=== PATIENT | male | born 1935 | race Caucasian/White ===

== ENCOUNTER 2021-10-12 14:02 | Observation (INO) | payer MEDICARE, SELFPAY ==
--- NOTE | 2021-10-12 | USCV_ITS ---
Transthoracic Echo Anaya Calvo Age: 86 Gender: M : 1935 Exam Date: 10/12/2021 21:44 Ordering Phys: Linda Florence MD Technologist: PATIENCE [place] [facility] [place]: PE BP: 150 / 103 HR: 82 Rhythm: Sinus Technical Quality: Adequate MEASUREMENTS (Male / Female) Normal Values 2D ECHO LV Diastolic Diameter PLAX 3.5 cm 4.2 - 5.9 / 3.9 - 5.3 cm LV Systolic Diameter PLAX 1.9 cm IVS Diastolic Thickness 1.5 cm 0.6 - 1.0 / 0.6 - 0.9 cm IVS Systolic Thickness 1.8 cm LVPW Diastolic Thickness 1.6 cm 0.6 - 1.0 / 0.6 - 0.9 cm LVPW Systolic Thickness 2.0 cm LVOT Diameter 2.3 cm LV Ejection Fraction 2D Teich 82.6 % LV Ejection Fraction MOD 2C 64.2 % LV Ejection Fraction 2C AL 64.8 % LA Diameter 5.2 cm LA Width 3.8 cm LA Height 5.7 cm RA Width 3.2 cm RA Height 4.9 cm Aorta at Sinotubular Diameter 2.8 cm M-MODE Aortic Annulus Diameter 3.5 cm LA Ao Ratio MM 1.7 MV E Point Septal Separation 2.4 cm DOPPLER AV Peak Velocity 94.0 cm/s LVOT Peak Velocity 72.0 cm/s AV Area Cont Eq vti 3.1 cm squared AV Area Cont Eq pk 3.0 cm squared MV Peak Velocity 107.0 cm/s MV Area PHT 3.4 cm squared Mitral E to A Ratio 0.6 MV E' Velocity 34.5 cm/s Mitral E to MV E' Ratio 7.9 Mitral E to LV E' Lateral Ratio 5.6 Mitral E to LV E' Septal Ratio 13.3 TR Peak Velocity 141.4 cm/s TR Peak Gradient 8.0 mmHg TR Mean Velocity 63.7 cm/s TR Mean Gradient 1.8 mmHg TR Velocity Time Integral 17.8 cm Right Atrial Pressure 3.0 mmHg Pulmonary Artery Systolic Pressu 11.0 mmHg PV Peak Velocity 67.0 cm/s RV Acceleration Time 0.1 s RV Ejection Time 0.3 s RV AcT/ET 0.4 FINDINGS Left Ventricle Normal left ventricular size. LV systolic function is normal with EF of 55-60%. No regional wall motion abnormalities. Grade 1 diastolic dysfunction Right Ventricle Grossly normal in size and function Right Atrium The right atrium is normal in size. Left Atrium Left atrium is normal in size Mitral Valve Moderate mitral annular calcification without significant stenosis or prolapse. There is mild mitral regurgitation. Aortic Valve Structurally normal aortic valve without significant sclerosis or stenosis. There is no aortic regurgitation. Tricuspid Valve Structurally normal tricuspid valve without significant stenosis or regurgitation. Insufficient TR jet to calculate RVSP Pulmonic Valve Not well visualized Pericardium Normal pericardium without effusion. Aorta Normal ascending aorta dimension. CONCLUSIONS LV systolic function is normal with EF of 55-60% Grade 1 diastolic dysfunction RV is grossly normal in size and function Moderate mitral annular calcification. Mild mitral regurgitation No comparison studies are available. Ángel Rivas MD (Electronically Signed) Final Date: 13 October 2021 14:50 S
[2021-10-12 14:13] VITALS: BP 189/93; PULSE 94; RESP 18; O2SAT 97; BMI 26.6
--- NOTE | 2021-10-12 14:14 | ECG_ITS ---
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 Measurements Intervals [place] Rate: 95 P: 30 [place]: 211 QRS: -67 QRSD: 145 T: 62 QT: 383 QTc: 482 Interpretive Statements SINUS RHYTHM WITH FIRST DEGREE AV BLOCK LEFT AXIS DEVIATION [QRS AXIS < -30] INTRAVENTRICULAR CONDUCTION DELAY [130+ ms QRS DURATION] Compared to ECG 10/12/2021 16:00:41 First degree AV block now present Electronically Signed On 10-13-2021 5:36:05 INSTRUMENT REPAIR SPECIALIST by Saira Palomares M.D. [id number]
--- NOTE | 2021-10-12 14:14 | XRR_ITS ---
PROCEDURE INFORMATION: Exam: XR Chest Exam date and time: 10/12/2021 2:14 PM Age: 86 years old Clinical indication: Pain; Angina pectoris; Prior surgery; Additional info: Cp TECHNIQUE: Imaging protocol: XR of the chest. Views: 1 view. COMPARISON: No relevant prior studies available. FINDINGS: Lungs: Mild left lower lobe interstitial congestion the left upper lobe and right lung are clear. Low lung volumes are seen. No consolidation. Pleural spaces: Unremarkable. No pleural effusion. No pneumothorax. Heart/Mediastinum: Unremarkable. No cardiomegaly. Bones/joints: Metallic sternotomy wires are in place. XR/XR chest 1V portable [id number] IMPRESSION: 1. Mild left lower lobe interstitial congestion 2. Otherwise No acute findings. 3. Status post sternotomy
--- NOTE | 2021-10-12 14:15 | W.ED.CHESTPA ---
HPI - Chest Pain General: Chief Complaint: General Medical Stated Complaint: CHEST PAIN Time Seen by Provider: 10/12/21 14:06 History of Present Illness: 86-year-old male presents due to chest pain. He was scheduled for an eye procedure and in the waiting area he states that he had several seconds of sharp mild chest pain that did not radiate. Denies any shortness of breath. States pain is now gone. Denies any lower extremity pain or swelling. Denies fever cough or chills. Denies nausea or vomiting. Denies previous similar episodes. Review of Systems Narrative: - CONSTITUTIONAL: Denies weight loss, fever and chills. - HEENT: Denies changes in vision and hearing. - RESPIRATORY: Denies SOB and cough. - CV: As above - GI: Denies abdominal pain, nausea, vomiting and diarrhea. - : Denies dysuria and urinary frequency. - MSK: Denies myalgia and joint pain. - SKIN: Denies rash and pruritus. - NEUROLOGICAL: Denies headache, weakness, numbness and syncope. - PSYCHIATRIC: Denies suicidal ideation Physical Exam Narrative: EXAM NARRATIVE: - GENERAL: Alert and oriented x 3. No acute distress. Well-nourished. - EYES: EOMI. Anicteric. - HENT: Atraumatic, no C-spine tenderness. Moist mucous membranes. No scleral icterus. No cervical lymphadenopathy. - LUNGS: Clear to auscultation bilaterally. No accessory muscle use. Equal lung sounds bilaterally. No respiratory distress. - CARDIOVASCULAR: Regular rate and rhythm. No murmur. No JVD. - ABDOMEN: Soft, non-tender and non-distended. Negative CVA tenderness bilaterally, no rebound or guarding, negative Manley sign. No palpable masses. - EXTREMITIES: No edema. Non-tender. - SKIN: No rashes or lesions. Warm. - NEUROLOGIC: No meningismus or focal neurological deficits. CN II-XII grossly intact. - PSYCHIATRIC: Cooperative. Appropriate mood and affect. Course Vital Signs: Vital signs: Vital Signs Pulse Rate 95 10/12/21 15:59 Respiratory Rate 18 10/12/21 15:59 Blood Pressure 189/93 10/12/21 14:17 Pulse Oximetry 95 10/12/21 15:59 MDM - Chest Pain Medical Decision Making 86-year-old gentleman presents with chest pain prior to eye surgery. Physical exam markable. D-dimer however is elevated and CT is concerning for PE. Started on heparin drip. Remainder of lab work unremarkable. He is hemodynamically stable afebrile nontoxic-appearing. Saturating well on room air. No signs of heart strain. Remainder of lab work and imaging reviewed. Discussed with hospitalist and they agreed patient would benefit from admission. Patient admitted in stable condition. Further evaluation management per hospitalist team. Lab Data : 10/12/21 15:38 10/12/21 15:38 Radiology Impressions Chest X-Ray 10/12/21 14:14 IMPRESSION: 1. Mild left lower lobe interstitial congestion 2. Otherwise No acute findings. 3. Status post sternotomy Chest CTA 10/12/21 16:27 IMPRESSION: 1. Positive for pulmonary embolism. 2. Negative for right heart strain. 3. Status post sternotomy. 4. Dorsal spine osteoarthritis ADDENDUM: 10/12/211801 Findings were discussed with Adelfo Traore at 10/12/2021 6:00 PM [employer]ISS[employer] FOR THE BLIND DIRECTOR. Laboratory Results WBC 5.8 10^3/uL (4.0-10.0) 10/12/21 15:38 RBC 4.73 10^6/uL (4.1-5.3) 10/12/21 15:38 Hgb 14.9 g/dL (11.7-16.6) 10/12/21 15:38 Hct 45.0 % (42.0-52.0) 10/12/21 15:38 MCV 95.1 fl (80-94) H 10/12/21 15:38 MCH 31.5 pg (28.0-34.0) 10/12/21 15:38 MCHC 33.1 g/dL (30.0-36.0) 10/12/21 15:38 RDW 13.2 % (12.1-15.1) 10/12/21 15:38 Plt Count 162 10^3/cmm (130-400) 10/12/21 15:38 MPV 10.6 fL (7.4-10.4) H 10/12/21 15:38 Neut % (Auto) 87.2 % 10/12/21 15:38 Lymph % (Auto) 10.8 % 10/12/21 15:38 [place] % (Auto) 1.0 % 10/12/21 15:38 Eos % (Auto) 0.2 % 10/12/21 15:38 Baso % (Auto) 0.5 % 10/12/21 15:38 Neut # (Auto) 5.01 10^3/uL (1.8-7.7) 10/12/21 15:38 Lymph # (Auto) 0.6 10^3/uL (0.8-4.8) L 10/12/21 15:38 [place] # (Auto) 0.1 10^3/uL (0.2-0.9) L 10/12/21 15:38 Eos # (Auto) 0.0 10^3/uL (0.0-0.8) 10/12/21 15:38 Baso # (Auto) 0.0 10^3/uL (0.0-0.1) 10/12/21 15:38 Nucleated RBC % (auto) 0 % 10/12/21 15:38 Nucleated RBCs # 0.0 /100WBC 10/12/21 15:38 D-Dimer 0.72 ug/mIFEU (0-0.59) H 10/12/21 15:38 Sodium 142 mmol/L (136-145) 10/12/21 15:38 Potassium 4.1 mmol/L (3.5-5.1) 10/12/21 15:38 Chloride 104 mmol/L (98-107) 10/12/21 15:38 Carbon Dioxide 25 mmol/L (22-29) 10/12/21 15:38 Anion Gap 17.1 (5-19) 10/12/21 15:38 BUN 18 mg/dL (8-23) 10/12/21 15:38 Creatinine 0.7 mg/dL (0.7-1.2) 10/12/21 15:38 GFR Calculation Not Reportable 10/12/21 15:38 Glucose 188 mg/dL (65-115) H 10/12/21 15:38 Calculated Osmolality 301 mOsm/kg (285-295) H 10/12/21 15:38 Calcium 9.2 mg/dL (8.5-10.5) 10/12/21 15:38 Total Bilirubin 0.5 mg/dL (0.15-1.2) 10/12/21 15:38 AST 24 U/L (0-40) 10/12/21 15:38 ALT < 5 U/L (0-41) 10/12/21 15:38 Alkaline Phosphatase 79 IU/L (40-130) 10/12/21 15:38 Troponin T Baseline 63 ng/L (0-15) H 10/12/21 15:38 Troponin T 120 Minute 59.57 ng/L (0-15) H 10/12/21 17:36 Delta Troponin T -3.43 ABS# (0-10) L 10/12/21 17:36 NT-Pro-B Natriuret Pep 792 pg/mL (0-450) H 10/12/21 15:38 Total Protein 7.0 g/dL (6.6-8.7) 10/12/21 15:38 Albumin 4.9 g/dL (3.5-5.2) 10/12/21 15:38 Globulin 2.1 g/dL (1.3-4.6) 10/12/21 15:38 SARS-CoV-2 Ag (Rapid) Negative (Negative) 10/12/21 14:40 EKG Data EKG 1: Other EKG comments: Sinus rhythm with PVC, rate of 99, left bundle branch block is present, no sign of acute ischemia or other acute abnormality. Discharge Plan Discharge Condition: Stable Coding Level of Care Code ED Rn Cvor for Randall Wen
[2021-10-12 14:17] VITALS: BP 189/93; PULSE 90; RESP 18; O2SAT 97
[2021-10-12 15:23] LABS: SARS Covid-2 Antigen Negative (Negative)
[2021-10-12 15:59] VITALS: PULSE 95; RESP 18; O2SAT 95
--- NOTE | 2021-10-12 16:03 | PC.NURSE ---
EKG done at 1600
[2021-10-12 16:08] LABS: D Dimer 0.72 ug/mIFEU (0-0.59)
[2021-10-12 16:10] LABS: Troponin(5th) Baseline 63 ng/L (0-15)
--- NOTE | 2021-10-12 16:14 | ECG_ITS ---
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 Measurements Intervals [place] Rate: 94 P: 14 [place]: 194 QRS: -63 QRSD: 141 T: 59 QT: 391 QTc: 490 Interpretive Statements SINUS RHYTHM LEFT AXIS DEVIATION [QRS AXIS < -30] INTRAVENTRICULAR CONDUCTION DELAY [130+ ms QRS DURATION] No previous ECG available for comparison Electronically Signed On 10-13-2021 5:48:50 MILLER SUPERVISOR by Saira Palomares M.D. [email or web address] centerMassachusetts [facility].[employer]/store/OM/[id number]
[2021-10-12 16:17] LABS: Alanine Aminotransferase < 5 U/L (0-41); Albumin Level 4.9 g/dL (3.5-5.2); Alkaline Phosphatase 79 IU/L (40-130); Anion Gap 17.1 (5-19); Aspartate Amino Transferase 24 U/L (0-40); Blood Urea Nitrogen 18 mg/dL (8-23); Calcium 9.2 mg/dL (8.5-10.5); Carbon Dioxide 25 mmol/L (22-29); Chloride 104 mmol/L (98-107); Globulin 2.1 g/dL (1.3-4.6); Glucose 188 mg/dL (65-115); NT Pro B Type Natriuretic Pept 792 pg/mL (0-450); Osmolality Calculated 301 mOsm/kg (285-295); Potassium 4.1 mmol/L (3.5-5.1); Sodium 142 mmol/L (136-145); Total Bilirubin 0.5 mg/dL (0.15-1.2)
--- NOTE | 2021-10-12 16:27 | CTR_ITS ---
PROCEDURE INFORMATION: Exam: CTA Chest With Contrast Exam date and time: 10/12/2021 4:27 PM Age: 86 years old Clinical indication: Shortness of breath; Patient HX: Hbp w/ SOB; Additional info: Pe TECHNIQUE: Imaging protocol: Computed tomographic angiography of the chest with contrast. 3D rendering (Not supervised by radiologist): MIP and/or 3D reconstructed images were created by the technologist. Radiation optimization: All CT scans at this facility use at least one of these dose optimization techniques: automated exposure control; mA and/or kV adjustment per patient size (includes targeted exams where dose is matched to clinical indication); or iterative reconstruction. Contrast material: OMNI 350; Contrast volume: 95 ml; Contrast route: INTRAVENOUS (IV); COMPARISON: CR XR chest 1V portable [id number] 10/12/2021 2:28 PM RADIATION DOSE METRICS: Total DLP (mGy-cm): 520.35 FINDINGS: Pulmonary arteries: There are several small filling defects seen within the pulmonary arteries of both lungs corresponding to positive diagnosis for pulmonary embolism. Aorta: Unremarkable. No aortic aneurysm. No aortic dissection. Lungs: Unremarkable. No consolidation. No masses. Pleural spaces: Unremarkable. No pneumothorax. No pleural effusion. Heart: Negative for right heart strain.. No cardiomegaly. No pericardial effusion. Lymph nodes: Unremarkable. No enlarged lymph nodes. Bones/joints: Metallic sternotomy wires are in place. No acute fracture. Dorsal spine osteoarthritis. Soft tissues: Unremarkable. CT/CT angio chest PE protcl [id number] IMPRESSION: 1. Positive for pulmonary embolism. 2. Negative for right heart strain. 3. Status post sternotomy. 4. Dorsal spine osteoarthritis
[2021-10-12 16:47] LABS: Basophils % 0.5 %; Eosinophils % 0.2 %; Hemoglobin 14.9 g/dL (11.7-16.6); Lymphocytes # 0.6 10^3/uL (0.8-4.8); Lymphocytes % 10.8 %; Mean Corpuscular HGB Conc 33.1 g/dL (30.0-36.0); Mean Corpuscular Hemoglobin 31.5 pg (28.0-34.0); Mean Corpuscular Volume 95.1 fl (80-94); Mean Platelet Volume 10.6 fL (7.4-10.4); Monocytes # 0.1 10^3/uL (0.2-0.9); Neutrophils # 5.01 10^3/uL (1.8-7.7); Neutrophils % 87.2 %; Nucleated Red Blood Cells % 0 %; Platelet Count 162 10^3/cmm (130-400); Red Blood Count 4.73 10^6/uL (4.1-5.3); Red Cell Distribution Width 13.2 % (12.1-15.1); White Blood Count 5.8 10^3/uL (4.0-10.0)
[2021-10-12 16:56] LABS: Slide Review Slide Review Perform
[2021-10-12] MEDS: iohexol 350 mg/mL 100 mL Btl IV (17:15)
[2021-10-12] MEDS: metoprolol tartrate 50 mg Tablet PO (17:29)
[2021-10-12 18:09] LABS: Troponin 5 2HR 59.57 ng/L (0-15)
[2021-10-12 18:10] LABS: Troponin 5 2HR Delta -3.43 ABS# (0-10)
[2021-10-12 18:42] VITALS: BP 184/94; PULSE 74; RESP 18; O2SAT 94
--- NOTE | 2021-10-12 19:22 | P.HP_ITS ---
Providers/Chief Complaint Chief Complaint: CHEST PAIN History of Present Illness HALLIE LUU is a 86 year old male was sent from the ophthalmology clinic office start experiencing chest pain. Vitals/I&O/Wt Last Vital Signs Pulse 74 10/12/21 18:42 Resp 18 10/12/21 18:42 BP 184/94 10/12/21 18:42 Pulse Ox 94 10/12/21 18:42 Weight last 48 hrs Weight 81.647 kg Data : 10/12/21 15:38 10/12/21 15:38 Coding Level of Care Code Acute Java Web User Interface Developer for Randall Wen
--- NOTE | 2021-10-12 20:15 | USR_ITS ---
PROCEDURE INFORMATION: Exam: US Duplex Lower Extremity Veins, Bilateral Exam date and time: 10/12/2021 8:15 PM Age: 86 years old Clinical indication: Condition or disease; Patient HX: PT diagnosed with pulmonary embolism. PT has HTN; Additional info: Pe TECHNIQUE: Imaging protocol: Real-time Duplex ultrasound of the bilateral extremities with 2-D scale, color Doppler flow and spectral waveform analysis with image documentation. Complete exam focused on the bilateral lower extremity veins. COMPARISON: No relevant prior studies available. FINDINGS: Evaluated veins include bilateral common femoral, proximal profunda femoral, proximal/mid/distal superficial femoral, popliteal, posterior tibial, peroneal, and greater saphenous veins. Right leg: No visible clot in the included veins. The included veins appear normally compressible. Duplex Doppler evaluation demonstrates flow in the evaluated veins. Left leg: There is a portion of the left greater saphenous vein, (a superficial vein), at the carr, that does not appear completely compressible. The vein is not completely occluded. This appearance could be secondary to some eccentrically located thrombus at this level. The appearance suggests chronic rather than acute thrombus, although it is difficult to be completely certain. Clinical correlation may be helpful. No visible clot in the other included veins. The other included veins appear normally compressible. Duplex Doppler evaluation demonstrates flow in the other evaluated veins. US/[place] [id number] IMPRESSION: 1. A portion of the left greater saphenous vein, (a superficial vein), at the carr, does not appear completely compressible. This appearance could be secondary to some eccentrically located thrombus at this level. The appearance suggests chronic rather than acute thrombus, although it is difficult to be completely certain. 2. No evidence of acute left lower extremity deep venous thrombosis. 3. No evidence of acute right lower extremity deep venous thrombosis.
[2021-10-12 20:16] VITALS: BMI 26.6
--- NOTE | 2021-10-12 20:28 | P.HP_ITS ---
Providers/Chief Complaint Admitting Physician: Linda Florence MD Chief Complaint: CHEST PAIN History of Present Illness HALLIE LUU is a 86 year old male does not have signal past medical history other than Parkinson's, diabetes and hypertension presented to the hospital from ophthalmology clinic after experiencing chest pain. Patient is stating that he was in the waiting area for about 90 minutes and when they checked his blood p ressure it was very high and at that point he was asked to go to the ER, patient is stating that for a brief moment he experience chest pain which she describing as stabbing pain, nonradiating, he did not straits any diaphoresis, nausea or vomiting. Despite his Parkinson's he walks half a mile a day, he is not leading a sedentary lifestyle. No previous history of cancer, previous colonoscopies un remarkable, he does have BPH however not concerned about any obstructive symptoms. No family history of hypercoagulable disorder. Nonalcoholic, non- smoker. In the ER he was diagnosed with PE, he was given metoprolol tartrate 50 mg p.o. for his hypertensive urgency He was given aspirin 324 mg, I will give him therapeutic dose of Lovenox Patient troponin 63, discharging down BNP 792 No signs of right heart strain on CTA, will request echo and venous Dopplers Review of Systems Const: Denies: fever(s) Eyes: Reports: change in vision, blurry vision and photophobia ENMT: Denies: throat pain Card: Reports: chest pain Resp: Denies: dyspnea GI: Denies: abdominal pain : Denies: flank pain Musc: Denies: neck pain Skin/Breast: Denies: rash Neuro: Denies: headache(s) Psych: Denies: anxiety Endo: Denies: polyuria Braxton/Lymph: Denies: easy bruising All/Imm: Denies: urticaria Medications/Allergies Allergies Allergy/AdvReac Type Severity Reaction Status Date / Time No Known Allergies Allergy Verified 10/12/21 20:18 PFSH Acute PFSH: Medical History (Updated 10/12/21 @ 21:08 by Linda Florence MD) BPH (benign prostatic hyperplasia) Diabetes Hypertension Parkinsons Surgical History (Updated 10/12/21 @ 21:08 by Linda Florence MD) History of hernia surgery History of trabeculectomy Family History (Updated 10/12/21 @ 21:09 by Linda Florence MD) Other Diabetes Denies family history of Clotting disorder Cancer Social History (Updated 10/12/21 @ 21:10 by Linda Florence MD) Smoking and tobacco status: never smoked Alcohol intake: never Substance/Drug Use: never Household members: spouse Housing: House Vitals/I&O/Wt Last Vital Signs Pulse 74 10/12/21 18:42 Resp 18 10/12/21 18:42 BP 184/94 10/12/21 18:42 Pulse Ox 94 10/12/21 18:42 Weight last 48 hrs Weight 81.647 kg Physical Exam Narrative: Very pleasant early male He was laying supine Asymptomatic ASymmetrical pupil S1, S2 Nonfocal neuro exam Legs without edema Looks well-hydrated Very pleasant Appropriate mood and affect No audible stridor or wheezing Saturating well on room air Data : 10/12/21 15:38 10/12/21 15:38 A&P Assessment and plan (1) Hypertension: Status: Acute (2) Pulmonary emboli: Status: Acute Plan Unprovoked pulmonary embolism Requested echo and venous Dopplers No previous history of cancer Negative colonoscopies Has history of BPH Check PSA level For now would use Lovenox Troponin trending down High BNP Eliquis at the time of discharge Hypertensive urgency We will add amlodipine to his metoprolol regimen, continue losartan Parkinson's: Continue carbidopa levodopa Type 2 diabetes: Low-dose sliding scale Patient uses Metformin at home Full code Consistent carb diet DVT prophylaxis sufficed with Lovenox therapeutic regimen Attestations Medical Necessity Statement*: Plan to discharge him in less than 48 hours Time Spent in Patient Care: 35mins Coding Level of Care Code Acute Buttermaker Helper for Ezequielg Fwd Diagnoses Hypertension I10 Pulmonary emboli I26.99
[2021-10-12] MEDS: enoxaparin 80 mg/0.8 mL Syringe SUBCUT (21:36)
[2021-10-12] MEDS: amlodipine 10 mg Tablet PO (21:36)
--- NOTE | 2021-10-12 21:40 | ECG_ITS ---
[facility] Test Date: 2021-10-12 Pat Name: Anaya Calvo Department: Room: 256 Gender: Male Brush Hand: : 1935 Requested By: Linda Florence Order Number: [id number] Damien MD: Ángel Rivas M.D. Measurements Intervals [place] Rate: 82 P: 12 [place]: 172 QRS: -54 QRSD: 143 T: 55 QT: 407 QTc: 476 Interpretive Statements SINUS RHYTHM LEFT AXIS DEVIATION [QRS AXIS < -30] INTRAVENTRICULAR CONDUCTION DELAY [130+ ms QRS DURATION] Compared to ECG 10/12/2021 16:54:23 First degree AV block no longer present Electronically Signed On 10-13-2021 16:06:53 STEEL CUTTER by Ángel Rivas M.D. [id number]
[2021-10-13] VITALS (7 sets, daily range): BP systolic 137–165; BP diastolic 68–77; PULSE 61–94; RESP 16–17; TEMP 36.7–36.8; O2SAT 93–99
--- NOTE | 2021-10-13 01:40 | ECG_ITS ---
[facility] Test Date: 2021-10-12 Pat Name: Anaya Calvo Department: Room: 256 Gender: Male Manager Private: : 1935 Requested By: Linda Florence Order Number: [id number] Damien MD: Ángel Rivas M.D. Measurements Intervals [place] Rate: 82 P: 11 [place]: 174 QRS: -55 QRSD: 142 T: 32 QT: 409 QTc: 480 Interpretive Statements SINUS RHYTHM LEFT AXIS DEVIATION [QRS AXIS < -30] INTRAVENTRICULAR CONDUCTION DELAY [130+ ms QRS DURATION] Compared to ECG 10/12/2021 22:18:11 No significant changes Electronically Signed On 10-13-2021 16:06:50 RAG BOILER by Ángel Rivas M.D. [email or web address] Management [id number]
--- NOTE | 2021-10-13 04:20 | ECG_ITS ---
[facility] Test Date: 2021-10-13 Pat Name: Anaya Calvo Department: Room: 256 Gender: Male Care Transport Nurse: : 1935 Requested By: Georgie Wilson Order Number: [id number] Damien MD: Ángel Rivas M.D. Measurements Intervals [place] Rate: 96 P: 39 [place]: 158 QRS: -61 QRSD: 164 T: 78 QT: 386 QTc: 490 Interpretive Statements SINUS RHYTHM LEFT AXIS DEVIATION [QRS AXIS < -30] INTRAVENTRICULAR CONDUCTION DELAY [130+ ms QRS DURATION] Compared to ECG 10/12/2021 22:20:00 No significant changes Electronically Signed On 10-13-2021 16:00:58 CIRCULATING NURSE by Ángel Rivas M.D. [id number]
[2021-10-13 04:39] LABS: Basophils % 0.2 %; Hematocrit 44.6 % (42.0-52.0); Hemoglobin 14.9 g/dL (11.7-16.6); Lymphocytes # 1.9 10^3/uL (0.8-4.8); Lymphocytes % 19.9 %; Mean Corpuscular HGB Conc 33.4 g/dL (30.0-36.0); Mean Corpuscular Hemoglobin 31.4 pg (28.0-34.0); Mean Corpuscular Volume 93.9 fl (80-94); Mean Platelet Volume 10.1 fL (7.4-10.4); Monocytes # 0.7 10^3/uL (0.2-0.9); Monocytes % 6.8 %; Neutrophils # 7.06 10^3/uL (1.8-7.7); Neutrophils % 72.7 %; Nucleated Red Blood Cells % 0 %; Platelet Count 200 10^3/cmm (130-400); Red Blood Count 4.75 10^6/uL (4.1-5.3); Red Cell Distribution Width 13.2 % (12.1-15.1); White Blood Count 9.7 10^3/uL (4.0-10.0)
[2021-10-13 05:06] LABS: Anion Gap 17.4 (5-19); Blood Urea Nitrogen 17 mg/dL (8-23); Calcium 9.3 mg/dL (8.5-10.5); Carbon Dioxide 24 mmol/L (22-29); Chloride 104 mmol/L (98-107); Glucose 169 mg/dL (65-115); Osmolality Calculated 297 mOsm/kg (285-295); Potassium 4.4 mmol/L (3.5-5.1); Sodium 141 mmol/L (136-145); Troponin T (5th) Once 69 ng/L (0-15)
[2021-10-13] MEDS: aspirin 81 mg EC Tablet PO ×2 (05:37→08:59)
[2021-10-13] MEDS: atorvastatin 40 mg Tablet 80 MG PO (05:37)
[2021-10-13] MEDS: metoprolol tartrate 50 mg Tablet 100 MG PO (05:40)
--- NOTE | 2021-10-13 08:42 | P.DS_ITS ---
Discharge Providers Date of Admission: 10/12/21 20:03 Date of Discharge: October 13, 2021 Attending Provider at Admission: Linda Florence MD Attending Provider at Discharge: Linda Florence MD Diagnoses at Discharge Discharge Diagnosis (1) Hypertension: Status: Acute (2) Pulmonary emboli: Status: Acute Reason for Visit Reason for Visit: CHEST PAIN Hospital Course Hospital Course 86-year-old male who was admitted for management and evaluation of chest pain. He was diagnosed with submassive pulmonary embolism. Troponin leak with high BNP noted. Echo report is pending. Patient is eager to return home, I started patient on therapeutic dose of Lovenox at the time of admission, no signs of right heart strain on the CTA chest. He will be discharged on Eliquis loading dose and then 5 mg twice daily for 7 days.Patient did not qualify for oxygen at the time of evaluation. Venous Doppler did not show DVT. This is nonprovoked pulmonary embolism for which he will require Eliquis for prolonged period time. Secondary to high PSA, given referral to see Dr. Veras(patient is stating that he does follow-up with a urologist in [place] and would prefer to stay with him for now. 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 Official report of echo is pending as Dr. Rivas was busy with two STEMI alerts, Dr. Palomares did review his echo, did not find poor RV function. Overall no significant wall motion abnormality. Patient will definitely benefit from a coronary angiogram, patient and his family prefers to follow-up with a cardiology in [place]. I did inform them clearly that in case of any recurrence of chest pain he should go to the ER in [place], he will need coronary angiogram. For now my plan is to discharge him on Eliquis For chest pain we will give him nitroglycerin Instructions were given clearly when to stop Eliquis Considering his history of Parkinson's he is at risk of falls All questions were answered to family's satisfaction They completely understand that in case of recurrence of symptoms he needs to go to the ER in [place] for coronary angiogram. They are planning to drive straight from the hospital to their home in [place] today. Physical Exam Narrative: Patient was eating breakfast this morning On room air S1, S2 No chest pain Abdomen soft No signs of edema of legs Nonfocal neuro exam Awake and alert Family at the bedside Discharge Data Studies Completed and Pending Completed Studies During Hospitalization Category Date Time Status CTA chest [CT angio chest PE protcl [id number]] Urgent Cat Scan 10/12/21 16:27 Completed XR chest 1V portable [id number] Stat Exams 10/12/21 14:14 [place] [id number] Urgent Ultrasound 10/12/21 20:15 Completed Pending at discharge Category Date Time Status Troponin T (5th) Once Timed Lab 10/13/21 10:30 Ordered CV. echo complete* [id number] Routine Ultrasound 10/12/21 20:15 Taken Radiology Impressions Chest X-Ray 10/12/21 14:14 IMPRESSION: 1. Mild left lower lobe interstitial congestion 2. Otherwise No acute findings. 3. Status post sternotomy Chest CTA 10/12/21 16:27 IMPRESSION: 1. Positive for pulmonary embolism. 2. Negative for right heart strain. 3. Status post sternotomy. 4. Dorsal spine osteoarthritis ADDENDUM: 10/12/211801 Findings were discussed with Adelfo Traore at 10/12/2021 6:00 PM PMO LEAD. Venous Duplex 10/12/21 20:15 IMPRESSION: 1. A portion of the left greater saphenous vein, (a superficial vein), at the carr, does not appear completely compressible. This appearance could be secondary to some eccentrically located thrombus at this level. The appearance suggests chronic rather than acute thrombus, although it is difficult to be completely certain. 2. No evidence of acute left lower extremity deep venous thrombosis. 3. No evidence of acute right lower extremity deep venous thrombosis. Laboratory Results WBC 9.7 10^3/uL (4.0-10.0) 10/13/21 04:25 RBC 4.75 10^6/uL (4.1-5.3) 10/13/21 04:25 Hgb 14.9 g/dL (11.7-16.6) 10/13/21 04:25 Hct 44.6 % (42.0-52.0) 10/13/21 04:25 MCV 93.9 fl (80-94) 10/13/21 04:25 MCH 31.4 pg (28.0-34.0) 10/13/21 04:25 MCHC 33.4 g/dL (30.0-36.0) 10/13/21 04:25 RDW 13.2 % (12.1-15.1) 10/13/21 04:25 Plt Count 200 10^3/cmm (130-400) 10/13/21 04:25 MPV 10.1 fL (7.4-10.4) 10/13/21 04:25 Neut % (Auto) 72.7 % 10/13/21 04:25 Lymph % (Auto) 19.9 % 10/13/21 04:25 Holmes % (Auto) 6.8 % 10/13/21 04:25 Eos % (Auto) 0.0 % 10/13/21 04:25 Baso % (Auto) 0.2 % 10/13/21 04:25 Neut # (Auto) 7.06 10^3/uL (1.8-7.7) 10/13/21 04:25 Lymph # (Auto) 1.9 10^3/uL (0.8-4.8) 10/13/21 04:25 Holmes # (Auto) 0.7 10^3/uL (0.2-0.9) 10/13/21 04:25 Eos # (Auto) 0.0 10^3/uL (0.0-0.8) 10/13/21 04:25 Baso # (Auto) 0.0 10^3/uL (0.0-0.1) 10/13/21 04:25 Nucleated RBC % (auto) 0 % 10/13/21 04:25 Nucleated RBCs # 0.0 /100WBC 10/13/21 04:25 D-Dimer 0.72 ug/mIFEU (0-0.59) H 10/12/21 15:38 Sodium 141 mmol/L (136-145) 10/13/21 04:25 Potassium 4.4 mmol/L (3.5-5.1) 10/13/21 04:25 Chloride 104 mmol/L (98-107) 10/13/21 04:25 Carbon Dioxide 24 mmol/L (22-29) 10/13/21 04:25 Anion Gap 17.4 (5-19) 10/13/21 04:25 BUN 17 mg/dL (8-23) 10/13/21 04:25 Creatinine 0.7 mg/dL (0.7-1.2) 10/13/21 04:25 GFR Calculation Not Reportable 10/13/21 04:25 Glucose 169 mg/dL (65-115) H 10/13/21 04:25 Calculated Osmolality 297 mOsm/kg (285-295) H 10/13/21 04:25 Calcium 9.3 mg/dL (8.5-10.5) 10/13/21 04:25 Magnesium 2.0 mg/dL (1.7-2.3) 10/13/21 04:25 Total Bilirubin 0.5 mg/dL (0.15-1.2) 10/12/21 15:38 AST 24 U/L (0-40) 10/12/21 15:38 ALT < 5 U/L (0-41) 10/12/21 15:38 Alkaline Phosphatase 79 IU/L (40-130) 10/12/21 15:38 Troponin T Gen 5 ng/L 69 ng/L (0-15) H 10/13/21 04:25 Troponin T Baseline 63 ng/L (0-15) H 10/12/21 15:38 Troponin T 120 Minute 59.57 ng/L (0-15) H 10/12/21 17:36 Delta Troponin T -3.43 ABS# (0-10) L 10/12/21 17:36 NT-Pro-B Natriuret Pep 792 pg/mL (0-450) H 10/12/21 15:38 Total Protein 7.0 g/dL (6.6-8.7) 10/12/21 15:38 Albumin 4.9 g/dL (3.5-5.2) 10/12/21 15:38 Globulin 2.1 g/dL (1.3-4.6) 10/12/21 15:38 Prostate Specific Ag 8.640 ng/mL (0-4) H 10/12/21 15:38 SARS-CoV-2 Ag (Rapid) Negative (Negative) 10/12/21 14:40 Vitals Last Vital Signs Temp 98.1 F 10/13/21 05:34 Pulse 94 10/13/21 05:34 Resp 17 10/13/21 05:34 BP 165/76 10/13/21 05:34 Pulse Ox 93 10/13/21 05:34 Discharge Plan Discharge Patient Disposition: Home Condition: Stable Prescriptions: New amlodipine 10 mg Tablet 10 mg PO DAILY Qty: 30 0RF Eliquis DVT-PE Treat 30D Start 5 mg (74 tabs) tablets,dose pack 5 mg PO BID Qty: 74 4RF nitroglycerin 0.4 mg tablet, sublingual 0.4 mg sublingual Q5M Qty: 14 0RF Rx Instructions: do not exceed 3 doses per episode Continued Sinemet 25-100 mg Tablet 1 tab PO TID 0RF metformin 1,000 mg Tablet 1,000 mg PO BID 0RF losartan 50 mg Tablet 50 mg PO BID 0RF metoprolol tartrate 50 mg Tablet 50 mg PO BID 0RF Discharge Orders: Discharge Order (Routine); Ordered 10/13/21 Ordered By: Linda Florence Discharge Diet: Cardiac Discharge Activity: Increase activity as tolerated Patient Instructions: Nitroglycerin (By mouth), Amlodipine (By mouth), Apixaban (By mouth), Pulmonary Embolism (GEN), Chronic Hypertension (GEN), Opioid Safety Activity Restrictions/Additional Instructions: PLEASE FOLLOW UP WITH PRIMARY CARE PROVIDER WITHIN 1 WEEK. WILL SEE UROLOGIST IN [place] Please go to the OR right away if you get recurrence of chest pain, with troponin leakage, high BNP and recent PE, you will need coronary angiogram for further evaluation for recurrent chest pain Discharge Attestations Time Spent in Discharge Care*: less than 30 min Quality Metrics Clinical Quality Measures [ No reported AMI, CVA or VTE this stay] Coding Level of Care Code Acute Chg FW DC note Diagnoses Hypertension I10 Pulmonary emboli I26.99
[2021-10-13] MEDS: losartan 50 mg Tablet PO (08:56)
[2021-10-13] MEDS: carbidopa-levodopa 25-100mg Tablet 1 EACH PO (08:58)
[2021-10-13] MEDS: amlodipine 10 mg Tablet PO (09:00)
[2021-10-13 09:07] LABS: Glucose Point of Care 199 mg/dL (70-110)
--- NOTE | 2021-10-13 10:09 | PC.CHAP ---
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 [] Patient/Family/Request visit [] Outpatient visit [] Follow-up visit [] Physician referral [] Code/Alert [x] Routine visit [] Staff referral [] Actively dying [x] Patient sleeping [] Family support [] [] Out of room [] Palliative care [] [] Receiving care in room [] Pre-surgical visit [] Trauma [] Long length of stay [] ICU visit [] Other: Relational/Emotional Strength [] Patient feels connected with others/family/visitors/staff [] Distress [] Loneliness/isolation [] Abandonment Spirituality of Patient [] Person of Ivet [] Attends Shinto of their Ivet [] Believes in Prayer [] Reads Bible or Yazdanism materials [] There are Spiritual 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 [] Prayer [] Active listening [] Non-anxious presence [] Spiritual/emotional support [] Crisis/trauma care [] Spiritual counseling [] Bereavement support [] Provided bereavement packet [] Provided Bible/devotional materials [] Provided toy/stuffed animal, coloring book to patient or family member [] Provided Communion [] Anointing/[place] [] Salvation [] Completed spiritual assessment [] Other: Impact on Illness or Injury [] Angry [] Fearful [] Anxious [] Often cries [] Exhaustion [] Unable to work [] Unable to attend congregation [] Unable to walk/stand [] Unable to read [] Unable to drive [] Unable to eat/drink [] Unable to sleep [] Unable to be with family [] Patient intubated [] Other: Summary Time spent with patient
[2021-10-13] MEDS: enoxaparin 80 mg/0.8 mL Syringe SUBCUT (10:11)
[2021-10-13 10:45] LABS: Glucose Point of Care 159 mg/dL (70-110)
[2021-10-13 11:18] LABS: Troponin T (5th) Once 577 ng/L (0-15)
== END 2021-10-13 14:24 | disposition home or self-care (01) ==
LOC: ER 19:21 → MEDSURG 20:03
PROVIDERS: Internal Medicine; Admitting Provider Internal Medicine; Emergency Provider Emergency Medicine; Visit Provider Internal Medicine
DX: I10 Essential (primary) hypertension (principal); I26.99 Other pulmonary embolism without acute cor pulmonale; G20 Parkinson's disease; E11.9 Type 2 diabetes mellitus without complications; N40.0 Benign prostatic hyperplasia without lower urinary tract symptoms
CPT/HCPCS: 36415; 36416; 71045; 71275; 80048; 80053; 82962; 83735; 83880; 84153; 84484; 85025; 85378; 87426; 93005; 93306; 93970; 96365; 96372; 96375; 99285; G0378; J1650; Q9967